=== PATIENT | male | born 1975 | race Caucasian/White ===

== ENCOUNTER → 2023-08-13 07:39 | Outpatient (CLI) | payer OTHER, SELFPAY ==
--- NOTE | ~2023-08-13 | US_ITS ---
EXAMINATION: US abdomen limited DATE: 08/13/2023 08:12 INDICATION: Right upper quadrant abdominal pain TECHNIQUE: Multiple grayscale and Doppler ultrasound images of the abdomen were obtained. COMPARISON: None FINDINGS: The region of the pancreas is obscured by shadowing gas in the stomach and bowels. Liver has normal e chogenicity and contour, with a smooth surface. No liver lesion identified. No intrahepatic biliary d uct dilation suspected. Portal venous flow was seen in the hepatopetal, normal direction and has norm al Doppler waveform. Echogenic sludge and shadowing gallstones in the gallbladder including 2 cm ston e at the fundus and 1.5 cm stone at the neck of the gallbladder. There is wall thickening of the gall bladder measuring up to 5 mm with a trace amount of pericholecystic fluid suggestive of cholecystitis although the sonographic Ibrahim sign was reported as negative by the barrel bridge assembler. The common bile du ct measures 5 mm diameter which is within normal limits. Visualized portion of the right kidney demon strates normal echogenicity and contour with no hydronephrosis. IMPRESSION: 1. Cholelithiasis and wall thickening of the gallbladder suggestive of cholecystitis although the son ographic Ibrahim sign was reported as negative by the barrel bridge assembler. Dr. Vazquez discussed these findin gs with Dr. Nelson at 8:47 AM. Reviewed, dictated and finalized at location A. IMPRESSION: 1. Cholelithiasis and wall thickening of the gallbladder suggestive of cholecys titis although the sonographic Ibrahim sign was reported as negative by the sono grapher. Dr. Vazquez discussed these findings with Dr. Nelson at 8:47 AM.
== END ==
PROVIDERS: PCP Internal Medicine; Visit Provider Physician Assistant
DX: R10.11 Right upper quadrant pain (principal); K80.20 Calculus of gallbladder without cholecystitis without obstruction
CPT/HCPCS: 76705

== ENCOUNTER 2023-08-26 14:23 | Outpatient (CLI) | payer OTHER, SELFPAY ==
[2023-08-26 15:19] LABS: Alanine Aminotransferase 22 U/L (6-50); Albumin Level 4.7 g/dL (3.5-5.1); Alkaline Phosphatase 71 U/L (38-126); Amylase 95 U/L (30-110); Aspartate Amino Transferase 26 U/L (17-59); Bilirubin,Total 0.8 mg/dL (0.2-1.3); Lipase 93 U/L (23-300)
== END 2023-08-26 14:24 | disposition home or self-care (01) ==
LOC: ANHSURGERY 14:28
PROVIDERS: PCP Internal Medicine; Visit Provider Surgery
DX: Z01.812 Encounter for preprocedural laboratory examination (principal); K80.10 Calculus of gallbladder with chronic cholecystitis without obstruction
CPT/HCPCS: 36415; 80076; 82150; 83690; 86850; 86900; 86901

== ENCOUNTER 2023-08-31 02:04 | Day surgery (SDC) | payer OTHER, SELFPAY ==
[2023-08-25 12:20] VITALS: BMI 28.3
--- NOTE | 2023-08-25 12:23 | PC.NURSE ---
Report to the Outpatient Waiting Room, entrance under the green pavilion located off [facility], at time 10:30 on date 08/31/23. Planned Procedure Time: 12:30. Time changes happen often and if your time is changed the preop area will call you the afternoon before. - You and your visitor will be asked to self-screen and do not enter if you have any COVID symptoms. - A mask is optional within the hospital at this time. Patients may have clear liquids (water, carbonated beverages, clear teas, apple juice) until 3 hours prior to surgery (9:30) with a maximum of 20 ounces. - No food from midnight until time of surgery Take the following medications with a SIP of water the morning of surgery: NONE DO NOT STOP ANY OF YOUR OTHER PRESCRIPTION MEDICATIONS PRIOR TO SURGERY ?EXCEPT THE FOLLOWING Medications to discontinue per physician: VITAMIN Date to take last dose: 08/27/23 Please no make-up, nail maldivian, hairspray, perfume, deodorant, or body powder the day of surgery. No jewelry (including any body piercings) or valuables the day of surgery, leave them at home. Please take a shower or bath the night before, or the morning of, surgery with an antibacterial soap. Wear comfortable, loose fitting clothing. - Jewelry must be removed prior to entering the operating room. Rings and piercings that are not removed may be cut off. - The hospital will not accept responsibility for valuables. - Please leave all valuables, including medications, at home the day of surgery. If you are going home after surgery, a licensed p d driver must drive you home. - NO public transportation without another adult if you receive anesthesia. - We recommend that an adult stay with you for 24 hours following discharge. - We also recommend that you do not drive, make important decision, drink alcoholic beverages, or take any drugs that were not prescribed by your health care provider for at least 24 hours after your discharge time. Follow any additional instructions given to you from your surgeon. If you or anyone in your household have experienced Covid symptoms in the past week, please notify your surgeon or the nurse liaison at the phone number below for possible testing. Telephone instructions given to PT - GILBERT PISANO and asked if any additional questions and then verbalized understanding. Patient advised to call surgeon office or pre surgery nurse liaison [phone] if any additional questions.
[2023-08-31] VITALS (8 sets, daily range): BP systolic 98–161; BP diastolic 61–91; PULSE 50–102; RESP 12–20; TEMP 36.4–36.6; O2SAT 96–100
[2023-08-31] MEDS: KETOROLAC 15 MG/ML VIAL (*BKC) IV PUSH (11:25)
[2023-08-31] MEDS: LACTATED RINGERS 1,000 ML 30 ML IV CONT ×2 (11:25→14:59)
[2023-08-31] MEDS: ACETAMINOPHEN 500 MG TABLET 1000 MG PO (11:25)
--- NOTE | 2023-08-31 11:50 | P.PNAN_ITS ---
Anes - Initial Pre Proc Eval Procedure: Operation Date: 08/31/23 12:30 Proposed Procedures p Laparoscopic Cholecystectomy, Possible Open - Ehsan Garcia MD Date/Time: 08/31/23 11:50 Surgeon: Ehsan Garcia MD Pre Op Diagnosis: Chr Cholecystitis secondary to Gallstones Patient Data Age: 48 Gender: M Height: 1.73 m Weight: 84.4 kg Allergies Allergy/AdvReac Type Severity Reaction Status Date / Time amoxicillin Allergy Unknown Hives Verified 08/25/23 12:20 Home Medications Medication Instructions Recorded Confirmed Type multivitamin 1 tablet PO DAILY 10/27/22 08/25/23 History Patient hx anesthesia problems: none Family hx anesthesia problems: none Results Review: All pre-operative results and documents have been reviewed as part of the pre- operative evaluation. [facility] Surgical History Surgical History (Updated 08/18/23 @ 10:44 by Gabrielle Pan) Umbilical hernia 2021 - robotic assisted laparoscopic umbilical hernia repair with mesh by Dr. Barrett performed at [facility] in [place], [place]. Family History Family History Father Hypertension Mother Breast cancer Sibling Diabetes mellitus Social History Social History Smoking status: Never smoker Second hand tobacco smoke exposure: No Alcohol intake: current Alcohol use details: VERY LITTLE SOCIALLY Substance use: never Substance use type: does not use Lack of Transportation: No Lack of Food: Never True Current Housing: I Have Housing Concerned About Future Housing: No Difficulty Paying Gas/Electric Bills: No Difficulty Paying for Meds: No Currently Unemployed: No Education: Master's Degree or Higher Difficulty w/ Childcare or Family Care: No Living arrangements: with family Spiritual care concerns: No Anes - Eval Final PreProcedure Day of Procedure 08/31/23 11:50 Patient weight: normal Heart: regular rate and rhythm Lungs: clear to auscultation Airway: Mallampati scale class II Neurological: alert and oriented Last oral intake: >/= 8 hours ASA classification: II Emergent: no Anesthetic plan: proceed Anesthesia type and monitoring: general ETT and standard monitoring Results Review: All pre-operative results and documents have been reviewed as part of the pre- operative evaluation. Informed Consent: The patient's anesthetic plan and its attendant risks and benefits were discussed with the patient/family/POA. Questions were solicited and answers provided to the satisfaction of the patient/family/POA.
--- NOTE | 2023-08-31 13:15 | WPDHPUPDATE1 ---
History and Physical Update Update Date/Time: 08/31/23 13:15 History and Physical has been reviewed, including an updated exam of the patient. There are NO changes in the patient's condition. Risks, benefits, and alternatives have been discussed and questions answered. Patient agrees to proceed with procedure.
[2023-08-31] MEDS: ceFAZolin 2 GM/D5W 50 ML 2 GM/50 ML BAG IVPB (13:25)
[2023-08-31] MEDS: LIDO 1%/EPINEPHRINE 1:100,000 20 ML VIAL 30 ML INFILTRATE (13:53)
[2023-08-31] MEDS: BUPivacaine HCL 0.5% PF 30 ML VIAL INFILTRATE (13:54)
--- NOTE | 2023-08-31 15:43 | W.PM.PROC2 ---
Procedure Note - Detailed Date of Procedure 08/31/23 Pre-op Diagnosis Chr Cholecystitis secondary to Gallstones Post-op Diagnosis Same Procedure Performed Laparoscopic cholecystectomy Surgeon Ehsan Garcia MD Rubber Cutter And Shape Carver MAMI Parnell Anesthesia General Indications Patient is a 40-year-old gentleman who has been having intermittent quadrant abdominal pain after eating fatty foods. His workup has included abdominal ultrasound which showed gallstones and some mild gallbladder wall thickening but no evidence of acute cholecystitis. He presents now for elective laparoscopic cholecystectomy. Findings Patient had 2 large gallstones within the gallbladder. Chronic gallbladder wall thickening was noted with some mild contraction of the gallbladder wall. The gallbladder was moderately intrahepatic. There were some adhesions of the omentum and 1 loop of small bowel to the patient's previously placed periumbilical mesh from prior hernia repair. I was able to place my port cephalad of the hernia repair and not perform adhesiolysis. Description of Procedure After informed consent was obtained patient brought to the operating room was placed supine position and general endotracheal Anesthesia was administered. The abdomen is then prepped and draped usual sterile fashion. A time-out was then performed correctly identifying the patient as well as procedure to be performed. He was given perioperative IV antibiotics. I the abdomen the left upper quadrant with a 5mm Optiview port. Once inside the abdomen insufflated to adequate pneumoperitoneum of 15mmHg of CO2. The patient had prior robotic assisted laparoscopic periumbilical ventral hernia repair with mesh with intraperitoneal placement of the mesh. There were some omental adhesions and 1 loop of bowel which was adherent to the mesh. Likely I was able to place the periumbilical port under direct visualization cephalad of the periumbilical mesh. Therefore I did not need to perform adhesiolysis of the bowel or omentum off of the mesh. I then switched the laparoscopic to the per supraumbilical trocar port site and then I placed additional trocar ports to include a 10mm epigastric trocar port and 2 more 5mm right subcostal trocar ports all under direct visualization. The gallbladder was mildly contracted around 2 large gallstones. The gallbladder was also moderately intrahepatic. There were changes of chronic inflammation but no acute inflammation I was able hold the gallbladder at the dome with a laparoscopic grasper and elevated gallbladder towards the right shoulder. A 2nd grasper was then used to hold the gallbladder at the infundibulum. I then proceeded to strip down the visceral adipose tissue and peritoneum around the infundibular gallbladder. Identified what appeared to be the cystic duct and dissected this structure out circumferentially. The cystic artery was identified and was dissected out circumferentially as well. The posterior wall the gallbladder at the infundibulum dissected free of the liver into the critical view was obtained. At this point I then placed 2 clips proximally cystic duct and 2 clips distally high on infundibular gallbladder. Cystic duct was then divided with Endo Quin. The similar fashion cystic artery was clipped and divided as well. The gallbladder was resected off the liver utilizing electrocautery. Due to the chronic inflammation there was not a great dissection plane and there was some bleeding from the liver bed which was controlled with electrocautery. Once the gallbladder was completely freed from the liver is placed into an Endo-Catch bag and brought out through the epigastric port site. Gallbladder and gallstones within were sent to pathology for examination. During the dissection there was some spillage of bile within the abdomen this was irrigated aspirated quickly as possible. No gallstones were lost in the abdomen. Once I inspected the liver bed there was
== END 2023-08-31 16:27 | disposition home or self-care (01) ==
PROVIDERS: PCP Internal Medicine; Visit Provider Surgery
PROC: 0FT44ZZ Resection of Gallbladder, Percutaneous Endoscopic Approach (ICD-10-PCS; CPT 47562; principal; 2023-08-31 12:30)
DX: K80.10 Calculus of gallbladder with chronic cholecystitis without obstruction (principal); Z80.3 Family history of malignant neoplasm of breast
CPT/HCPCS: 47562; 36415; 80076; 82150; 83690; 86850; 86900; 86901; 88304; A9270; C1713; J0690; J1100; J1170; J1885; J2250; J2405; J2704; J2710; J3010; J7120